=== PATIENT | female | born 1935 | race Caucasian/White ===

== ENCOUNTER 2018-09-07 15:08 | Emergency (ER) | payer MEDICARE, OTHER ==
[~2018-09-07] VITALS: Ht 160 cm; Wt 79.8 kg
--- NOTE | 2018-09-07 15:15 | NUR ---
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 AOX1, VSS, RR EVEN AND UNLABORED. SKIN WARM, DRY, INTACT WITH BRUISING ON ALL EXTREMITIES. DENIES SOB, DIZZINESS, WEAKNESS. CAREGIVER CHARLY AT BEDSIDE. READY FOR EVAL. WILL CONT TO MONITOR.
[2018-09-07 16:17] LABS: BASOPHILS % (AUTO) 0.3 % (0.0-2.0); EOSINOPHILS % (AUTO) 1.7 % (0.0-6.0); HEMATOCRIT 43 % (33-45); HEMOGLOBIN 14.5 g/dL (11.5-14.8); LYMPHOCYTES # (AUTO) 1.2 /CMM (0.8-4.8); LYMPHOCYTES % (AUTO) 14.8 % (20.0-44.0); MEAN CORPUSCULAR HGB CONC 34 g/dl (31.0-36.0); MEAN CORPUSCULAR VOLUME 91 fL (82-100); MONOCYTES # (AUTO) 0.5 /CMM (0.1-1.30); MONOCYTES % (AUTO) 6.8 % (2.0-12.0); NEUTROPHILS # (AUTO) 6.2 /CMM (1.8-8.9); NEUTROPHILS % (AUTO) 76.4 % (43.0-81.0); PLATELET COUNT (AUTO) 193 /CMM (150-450); RED BLOOD CELL COUNT(AUTO) 4.68 MIL/uL (4.0-5.2); WHITE BLOOD COUNT (AUTO) 8.1 K/uL (4.3-11.0)
[2018-09-07 16:26] LABS: CALCIUM, SERUM 9.1 mg/dL (8.5-10.1); CARBON DIOXIDE 34 mmol/L (21-32); CHLORIDE 106 mmol/L (98-107); CREATININE 0.7 mg/dL (0.6-1.3); GLUCOSE 115 mg/dL (74-106); POTASSIUM 4.1 mmol/L (3.5-5.1); SODIUM SERUM 144 mmol/L (136-145); UREA NITROGEN, BLOOD 22 mg/dL (7-18)
--- NOTE | 2018-09-07 16:30 | NUR ---
OUT FOR CT
--- NOTE | 2018-09-07 16:45 | NUR ---
PT BACK FROM CT
--- NOTE | 2018-09-07 17:35 | NUR ---
URINE COLLECTED VIA STRAIGHT CATH AND SENT TO STAT LAB PER MD ORDER
[2018-09-07 18:08] LABS: APPEARANCE,URINE Clear (CLEAR); BILIRUBIN,URINE Negative (NEGATIVE); BLOOD, URINE Negative Ery/uL (NEGATIVE); COLOR,URINE Yellow (YELLOW); KETONES,URINE Negative (NEGATIVE); LEUKOCYTE ESTERASE ,URINE Negative (NEGATIVE); NITRITE, URINE Negative (NEGATIVE); PROTEIN,URINE Negative (NEGATIVE); UGLUCOSE Negative (NEGATIVE); UROBILINOGEN,URINE 0.2 EU/dL (0.2)
--- NOTE | 2018-09-07 19:32 | NUR ---
PT PULLED OUT IV
--- NOTE | 2018-09-07 19:34 | NUR ---
CALLED [facility] FOR S TRANSPORT FOR THIS PATIENT TO [facility] ETA [id number] TRIP # [id number]
--- NOTE | 2018-09-07 20:07 | NUR ---
SMALL NODULE ON RIGHT ARM WHERE IV WAS PULLED OUT.
--- NOTE | 2018-09-07 20:30 | NUR ---
[facility] P/U PT FOR TRANSPORT. Patient discharged stable condition. Written and verbal after care instructions given TO AMBULANZ TO RELAY TO FACILITY, DUE TO PT HAVING DEMENTIA.
[2018-09-07 20:57] VITALS: BP 139/80
== END 2018-09-07 20:58 ==
LOC: ER 15:14
DX: R42 Dizziness and giddiness (principal); I67.82 Cerebral ischemia; M47.892 Other spondylosis, cervical region; R94.31 Abnormal electrocardiogram [ECG] [EKG]; F32.9 Major depressive disorder, single episode, unspecified; F03.90 Unspecified dementia, unspecified severity, without behavioral disturbance, psychotic disturbance, mood disturbance, and anxiety; W18.39XA Other fall on same level, initial encounter; Y93.89 Activity, other specified; Y92.89 Other specified places as the place of occurrence of the external cause; Y99.8 Other external cause status
CPT/HCPCS: 36415; 70450-TC; 72125-TC; 80048-TC; 81000-TC; 85025-TC; A4606; Z7610